=== PATIENT | female | born 1970 | race Two or more races ===

== ENCOUNTER 2016-12-10 08:13 | Emergency (ER) | payer OTHER ==
[2016-12-10 08:25] VITALS: BP 150/72; PULSE 94; TEMP 97.4; BMI 29.2
--- NOTE | 2016-12-10 09:26 | PDOC ---
History of Present Illness - General Chief Complaint: Pain Stated Complaint: HEADACHE Time Seen by Provider: 12/10/16 08:52 History Source: Patient Exam Limitations: No Limitations - History of Present Illness Initial Comments: 12/10/16 09:47 My chief complaint: Left lateral neck pain, headache 3 days with tingling and left arm History of present illness: Patient is a 46-year-old female with history of fibromyalgia here today complaining of left lateral neck pain that radiates to the occipital and to left shoulder. Patient also reports having tingling of her left arm to her left hand for 3 days. Patient has been taking ibuprofen without relief of symptoms last taken yesterday. He reports having bilateral shoulder pain for a long time had been taking gabapentin, and magnesium for pain. Patient denies any recent injuries or any exercise or any lifting. She reports the pain currently is an 8 out of 10. Patient also reports the pain increases with turning her head towards the left. Patient denies any nausea or any dizziness. 12/10/16 09:53 Timing/Duration: changing over time Severity: severe Associated Symptoms: reports: headaches (left occipital ) Past History - Past Medical History Allergies/Adverse Reactions: Allergies Allergy/AdvReac Type Severity Reaction Status Date / Time No Known Allergies Allergy Verified 12/10/16 08:25 Home Medications: Ambulatory Orders Cyclobenzaprine HCl [Flexeril -] 10 mg PO Q8H PRN #21 tablet 12/10/16 Naproxen [Naprosyn -] 500 mg PO BID PRN #14 tablet MDD 2 12/10/16 COPD: No Other medical history: FIBROMYALGIA - Suicide/Smoking/Psychosocial Hx Smoking Status: No Smoking History: Never smoked Number of Cigarettes Smoked Daily: 0 Review of Systems - Review of Systems Able to Perform ROS?: Yes Constitutional: No: Symptoms Reported HEENTM: No: Symptoms Reported Respiratory: No: Symptoms reported Cardiac (ROS): No: Symptoms Reported ABD/GI: No: Symptoms Reported : No: Symptoms Reported Musculoskeletal: Yes: Muscle Pain (left shoulder ), Neck Pain (left lateral ) Integumentary: No: Symptoms Reported Neurological: Yes: Tingling (left arm to hand ) *Physical Exam - Vital Signs Last Vital Signs Temp Pulse Resp BP Pulse Ox 97.4 F L 94 H 18 150/72 100 12/10/16 08:21 12/10/16 08:21 12/10/16 08:21 12/10/16 08:21 12/10/16 08:21 - Physical Exam General Appearance: Yes: Appropriately Dressed HEENT: positive: EOMI, PANKAJ, Normal ENT Inspection Neck: positive: Tender, Tender lateral (left lateral ). negative: Lymphadenopathy (R), Lymphadenopathy (L), Rigidity, Tender midline Respiratory/Chest: positive: Lungs Clear, Normal Breath Sounds. negative: Chest Tender, Respiratory Distress Cardiovascular: positive: Regular Rhythm, Regular Rate, S1, S2 Musculoskeletal: positive: Normal Inspection. negative: CVA Tenderness, CVA Tenderness (R), CVA Tenderness (L), Decreased Range of Motion, Vertebral Tenderness Extremity: positive: Normal Capillary Refill, Normal Inspection, Normal Range of Motion (b/l shoulders), Tender (left shoulder ) Integumentary: positive: Normal Color Neurologic: positive: Alert, Normal Response, Motor Strength 5/5 (upper extremities ), Respond to painful stimul (b/l arms ), Responsive, Finger to Nose. negative: Numbness, Sensory Deficit Medical Decision Making - Medical Decision Making 12/10/16 09:54 Patient is a 46-year-old female with history of fibromyalgia here today complaining of left lateral neck pain that radiates to the occipital and to left shoulder. Patient also reports having tingling of her left arm to her left hand for 3 days. Patient has been taking ibuprofen without relief of symptoms last taken yesterday. He reports having bilateral shoulder pain for a long time had been taking gabapentin, and magnesium for pain. Patient denies any recent injuries or any exercise or any lifting. She reports the pain currently is an 8 out of 10. Patient also reports the pain increases with turning her head towards the left. Patient denies any nausea or any dizziness. Headache Left lateral neck pain paresthesis left arm left shoulder pain PLAN: urine hcg negative Toradol 60 mg IM xray spine cervical straightening of cervical spine. Examination is otherwise unremarkable per Dr. Grewal Flexeril 10 mg every 8 hours as needed for muscle spasm #21 tabs Naprosyn 500 mg every 12 hours when necessary pain 7 days Follow-up with orthopedist 12/10/16 11:14 *DC/Admit/Observation/Transfer Diagnosis at time of Disposition: Neck pain, Paresthesia of left upper extremity, Left shoulder pain - Discharge Dispostion Disposition: HOME Condition at time of disposition: Stable - Prescriptions Prescriptions: Cyclobenzaprine HCl [Flexeril -] 10 mg PO Q8H PRN #21 tablet PRN Reason: Muscle Spasms Naproxen [Naprosyn -] 500 mg PO BID PRN #14 tablet MDD 2 PRN Reason: Pain - Referrals Referrals: Lorie Martinez MD [Primary Care Provider] - Mitul Lopez MD [Staff Physician] - - Patient Instructions Additional Instructions: Follow-up with orthopedist as soon as possible for further evaluation Return to emergency room if symptoms worsen worsening pain worsening or worsening tingling numbness and left arm Avoid any strenuous activities or exercise Patient voiced understanding of discharge instructions and all questions were answered And thank you for choosing [facility] emergency room for your medical needs today.
[2016-12-10] MEDS ORDERED: KETOROLAC TROMETHAMINE 60 MG/2 ML VIAL ONE (09:46)
[2016-12-10] MEDS ORDERED: KETOROLAC TROMETHAMINE 60 MG/2 ML VIAL IM ONE (09:46)
== END 2016-12-10 11:28 | disposition home or self-care (01) ==
LOC: JERFT 08:13
PROC: 3E0233Z Introduction of Anti-inflammatory into Muscle, Percutaneous Approach (ICD-10-PCS; principal; 2016-12-10)
DX: R81 Glycosuria (principal); M54.2 Cervicalgia
CPT/HCPCS: 72050-TC; 84703; 99281-25